=== PATIENT | female | born 1995 | race Caucasian/White ===

== ENCOUNTER 2017-03-04 00:05 | Emergency (ER) | payer OTHER ==
[~2017-03-04] VITALS: Ht 170.2 cm; Wt 59.1 kg
[2017-03-04 00:08] VITALS: TEMP 99.1
[2017-03-04] MEDS ORDERED: APRI 0.15 MG-0.1 TAB PO (00:10)
[2017-03-04] MEDS ORDERED: ULTRAM 50MG TAB50 MG PO (00:46)
[2017-03-04 00:47] VITALS: BP 92/70; PULSE 87
== END 2017-03-04 01:03 | disposition home or self-care (01) ==
LOC: COL.ER 00:05
DX: S93.402A Sprain of unspecified ligament of left ankle, initial encounter (principal); X50.1XXA Overexertion from prolonged static or awkward postures, initial encounter; Y92.830 Public park as the place of occurrence of the external cause